=== PATIENT | female | born 1985 | race Caucasian/White ===

== ENCOUNTER 2016-08-30 13:32 | Emergency (ER) | payer OTHER ==
[2016-08-30 14:47] VITALS: BP 132/83
[2016-08-30] MEDS ORDERED: methylPREDNISolone SOD SUCC* 125 MG 2 ML VIAL IM ONE (15:03)
--- NOTE | 2016-08-30 15:07 | UC ---
Allergic Reaction HPI - HPI Summary HPI Summary: patient started tamiflu 4 days ago, stopped ir when she developed full body hives, she states her chest feels a little tight and she is coughing more, does not know if it is from the reaction or the flu - History of Current Complaint Chief Complaint: Desiree Stated Complaint: HIVES 4 DAYS Time Seen by Provider: 08/30/16 14:50 Hx Obtained From: Patient Hx Last Menstrual Period: 08/24/16 ?: No Onset/Duration: Sudden Onset, Lasting Days Severity Initially: Moderate Severity Currently: Moderate Character: Pruritus, Hives Aggrevating Factor(s): Heat Alleviating Factor(s): Nothing Associated Signs And Symptoms: Positive: Hoarseness - Allergies/Home Medications Allergies/Adverse Reactions: Allergies Allergy/AdvReac Type Severity Reaction Status Date / Time Amoxicillin [From Augmentin] Allergy Intermediate hives/GI Verified 08/30/16 14: 47 Clavulanic Acid Allergy Intermediate hives/GI Verified 08/30/16 14:47 [From Augmentin] PMH/Surg Hx/FS Hx/Imm Hx Previously Healthy: Yes - Surgical History Surgical History: Yes Surgery Procedure, Year, and Place: CHOLECYSTECTOMY--2016 - Family History Known Family History: Positive: Hypertension - Social History Alcohol Use: Rare Substance Use Type: None Smoking Status (MU): Never Smoked Tobacco - Immunization History Most Recent Influenza Vaccination: no Review of Systems Constitutional: Negative Skin: Rash Eyes: Negative ENT: Negative Respiratory: Negative Cardiovascular: Negative Gastrointestinal: Negative Genitourinary: Negative Motor: Negative Neurovascular: Negative Musculoskeletal: Negative Neurological: Negative Psychological: Negative All Other Systems Reviewed And Are Negative: Yes Physical Exam Triage Information Reviewed: Yes Appearance: Well-Nourished, Ill-Appearing, Pain Distress Vital Signs: Initial Vital Signs Temp 98.4 F 08/30/16 14:39 Pulse 87 08/30/16 14:39 Resp 18 08/30/16 14:39 BP 132/83 08/30/16 14:39 Pulse Ox 100 08/30/16 14:39 Vital Signs Reviewed: Yes Eye Exam: Normal Eyes: Positive: Conjunctiva Clear ENT Exam: Normal ENT: Positive: Pharyngeal erythema, TM red Dental Exam: Normal Neck exam: Normal Neck: Positive: Supple, Nontender, No Lymphadenopathy Respiratory Exam: Normal Respiratory: Positive: Chest non-tender, Lungs clear, Normal breath sounds Cardiovascular Exam: Normal Cardiovascular: Positive: RRR, No Murmur, Pulses Normal Abdominal Exam: Normal Abdomen Description: Positive: Nontender, No Organomegaly, Soft Bowel Sounds: Positive: Present Musculoskeletal Exam: Normal Musculoskeletal: Positive: Strength Intact, ROM Intact, No Edema Neurological Exam: Normal Neurological: Positive: Alert, Muscle Tone Normal Psychological Exam: Normal Skin: Positive: Other - hives all over from the neck down. Allergic Reaction Course/Dx - Course Course Of Treatment: hx obtained, exam performed, meds reviewed, solumedrol given, prednisone prescribed as well as cough syrup - Differential Dx/Diagnosis Differential Diagnosis/HQI/PQRI: Bronchospasm, Local Allergic Reaction, Urticaria Provider Diagnoses: alleric reaction to tamiflu. bronchospasm Discharge - Discharge Plan Condition: Stable Disposition: HOME Prescriptions: predniSONE TAB* [Deltasone TAB*] 20 mg PO DAILY #18 tab Patient Education Materials: General Allergic Reaction (ED) Referrals: APRIL Cooper [Primary Care Provider] - Additional Instructions: take the prednisone as prescribed. keep skin cool, cool shower, if you get overheated hives may become stonger. Use the cough medicine as needed. Continue with increased fluid intake and get plenty of rest.
== END 2016-08-30 15:39 | disposition home or self-care (01) ==
LOC: UCCORT 13:32
DX: L50.0 Allergic urticaria (principal); T37.5X5A Adverse effect of antiviral drugs, initial encounter; Y92.9 Unspecified place or not applicable; J98.01 Acute bronchospasm; Z88.1 Allergy status to other antibiotic agents; Z90.49 Acquired absence of other specified parts of digestive tract
CPT/HCPCS: 96372; 99212; G0463; J2930

== ENCOUNTER 2017-05-10 11:31 | Emergency (ER) | payer OTHER ==
[2017-05-10 13:04] VITALS: BP 139/90
--- NOTE | 2017-05-10 13:53 | UC ---
Lower Extremity/Ankle HPI - HPI Summary HPI Summary: Awoke with foot pain (L) about 9 days ago continues to hurt with weight bearing no swelling-elevation and rest make it better, no known injury - History of Current Complaint Chief Complaint: UCLowerExtremity Stated Complaint: HAD XRAY LT FOOT Time Seen by Provider: 05/10/17 12:53 Hx Obtained From: Patient Hx Last Menstrual Period: 04/29/17 ?: No Onset/Duration: Sudden Onset, Lasting Days - 9, Still Present Severity Initially: Moderate Severity Currently: Moderate Pain Intensity: 6 Pain Scale Used: 0-10 Numeric Aggravating Factor(s): Standing, Ambulation Alleviating Factor(s): Rest, Elevation Able to Bear Weight: Yes - Allergies/Home Medications Allergies/Adverse Reactions: Allergies Allergy/AdvReac Type Severity Reaction Status Date / Time Amoxicillin [From Augmentin] Allergy Intermediate hives/GI Verified 08/30/16 14: 47 Clavulanic Acid Allergy Intermediate hives/GI Verified 08/30/16 14:47 [From Augmentin] seasonal Allergy Eyes Uncoded 05/10/17 13:04 Itchy/Swollen/Red/Watery Home Medications: Home Medications Ibuprofen TAB* [Motrin TAB* 400 MG] 400 mg PO ONCE PRN 05/10/17 [History Confirmed 05/10/17] PMH/Surg Hx/FS Hx/Imm Hx Previously Healthy: Yes - Surgical History Surgical History: Yes Surgery Procedure, Year, and Place: CHOLECYSTECTOMY--2016 - Family History Known Family History: Positive: Hypertension - Social History Occupation: Employed Full-time Lives: With Family Alcohol Use: Rare Substance Use Type: None Smoking Status (MU): Never Smoked Tobacco - Immunization History Most Recent Influenza Vaccination: no Review of Systems Constitutional: Negative Skin: Negative Eyes: Negative ENT: Negative Respiratory: Negative Cardiovascular: Negative Gastrointestinal: Negative Genitourinary: Negative Motor: Negative Neurovascular: Negative Musculoskeletal: Arthralgia - left foot Neurological: Negative Psychological: Negative Is Patient Immunocompromised?: No All Other Systems Reviewed And Are Negative: Yes Physical Exam Triage Information Reviewed: Yes Appearance: Well-Appearing, No Pain Distress, Well-Nourished Vital Signs: Initial Vital Signs Temp 99.6 F 05/10/17 12:51 Pulse 93 05/10/17 12:51 Resp 20 05/10/17 12:51 BP 139/90 05/10/17 12:51 Vital Signs Reviewed: Yes Eye Exam: Normal Eyes: Positive: Conjunctiva Clear ENT Exam: Normal ENT: Positive: Normal ENT inspection, Hearing grossly normal. Negative: Nasal congestion, Trismus, Muffled voice, Hoarse voice Dental Exam: Normal Neck exam: Normal Neck: Positive: Supple, Nontender, No Lymphadenopathy Respiratory Exam: Normal Respiratory: Positive: Chest non-tender, No respiratory distress, No accessory muscle use Cardiovascular Exam: Normal Cardiovascular: Positive: RRR, Pulses Normal, Brisk Capillary Refill Musculoskeletal Exam: Other Musculoskeletal: Positive: ROM Intact, No Edema, Strength Limited @ - left foot due to pain Neurological Exam: Normal Neurological: Positive: Alert, Muscle Tone Normal Psychological Exam: Normal Skin Exam: Normal Diagnostics - Radiology No standard instances Xray Interpretation: No Acute Changes Radiology Interpretation Completed By: ED Physician, Radiologist Lower Extremity Course/Dx - Course Course Of Treatment: lab studies, cam boot, medrol dose pack follow with ortho - Differential Dx/Diagnosis Provider Diagnoses: Left foot pain Discharge - Discharge Plan Condition: Stable Disposition: HOME Prescriptions: Methylprednisolone [Medrol Dosepak 4 MG*] 4 mg PO .SEE DAVID INSTRUCTION #1 david Patient Education Materials: Arthralgia (ED) Referrals: Rakesh Bee MD [Medical Doctor] - 3 Days
[2017-05-10 19:07] LABS: Hematocrit 37 % (35-47); Hemoglobin 12.7 g/dl (12.0-16.0); Mean Corpuscular HGB Conc 34 g/dl (31-36); Mean Corpuscular Hemoglobin 28 pg (27-31); Mean Corpuscular Volume 81 fL (80-97); Mean Platelet Volume 9 um3 (7.4-10.4); Red Blood Count 4.57 10^6/ul (4.0-5.4); Red Cell Distribution Width 13 % (10.5-15); White Blood Count 10.6 10^3/ul (3.5-10.8)
[2017-05-10 19:23] LABS: C Reactive Protein 20.85 mg/L (< 5.00); Uric Acid 4.4 mg/dL (2.3-6.6)
--- NOTE | 2017-05-11 08:41 | UC ---
Progress - Progress Note Progress Note: 08:40am - the above note was filed under the "Imaging" visit. RN already is aware and has reviewed this note. As such, this has been clarified to the associated visit. Patient Name: RUPERTO FLORES Date of : 85 Patient Status: Referred Attending Provider: aJi Don Date: 05/11/17 07:55 Initialization Date: 05/11/17 07:55 Progress - Progress Note Progress Note: Reviewed CBC, uric acid, [facility] ([facility] CRP in particular elevated. RN to call pt - recommend f/u with orthopedic surgeon as soon as possible - today if possible (recommendation 05/10/17 had been for 3 days.). Suggest hold off methoprednisolone until further evaluation / recommendation by orthopedist. Seek medical attention in the Emergency Department for worse or new problems.
== END 2017-05-10 14:13 | disposition home or self-care (01) ==
LOC: UCCORT 11:31
DX: M25.572 Pain in left ankle and joints of left foot (principal); Z88.3 Allergy status to other anti-infective agents
CPT/HCPCS: 36415; 84550; 85025; 86140; 86618; 99212; G0463

== ENCOUNTER 2017-07-21 16:15 | Emergency (ER) | payer OTHER ==
[2017-07-21 19:12] VITALS: BP 122/71
--- NOTE | 2017-07-21 19:32 | UC ---
Respiratory Complaint HPI - HPI Summary HPI Summary: [address], PAIN WITH SWALLOWING, BODY ACHES, SUBJECTIVE FEVER, MILD COUGH, MILD NASAL CONGESTION. IS REQUESTING FLU AND STREP TESTING. NO FLU SHOT THIS SEASON. - History of Current Complaint Chief Complaint: UCGeneralIllness Stated Complaint: SORE THROAT Time Seen by Provider: 07/21/17 19:15 Hx Obtained From: Patient Hx Last Menstrual Period: 07/05/17 Onset/Duration: Gradual Onset, Lasting Days, Still Present Timing: Constant Severity Initially: Moderate Severity Currently: Moderate Pain Intensity: 5 Pain Scale Used: 0-10 Numeric Character: Cough: Nonproductive Aggravating Factors: Nothing Alleviating Factors: Nothing Associated Signs And Symptoms: Positive: Fever, URI, Nasal Congestion. Negative : Dyspnea - Allergies/Home Medications Allergies/Adverse Reactions: Allergies Allergy/AdvReac Type Severity Reaction Status Date / Time amoxicillin [From Augmentin] Allergy Intermediate hives/GI Verified 07/21/17 19: 12 clavulanic acid Allergy Intermediate hives/GI Verified 07/21/17 19:12 [From Augmentin] seasonal Allergy Eyes Uncoded 07/21/17 19:12 Itchy/Swollen/Red/Watery PMH/Surg Hx/FS Hx/Imm Hx Previously Healthy: Yes - Surgical History Surgical History: Yes Surgery Procedure, Year, and Place: CHOLECYSTECTOMY--2016 - Family History Known Family History: Positive: Hypertension - Social History Alcohol Use: Rare Substance Use Type: None Smoking Status (MU): Never Smoked Tobacco - Immunization History Most Recent Influenza Vaccination: no Review of Systems Constitutional: Fever, Fatigue ENT: Sore Throat, Nasal Discharge Respiratory: Cough Cardiovascular: Negative Gastrointestinal: Negative Musculoskeletal: Myalgia Neurological: Headache All Other Systems Reviewed And Are Negative: Yes Physical Exam Triage Information Reviewed: Yes Appearance: Well-Appearing, No Pain Distress, Well-Nourished Vital Signs: Initial Vital Signs Temp 99.0 F 07/21/17 19:06 Pulse 98 07/21/17 19:06 Resp 16 07/21/17 19:06 BP 122/71 07/21/17 19:06 Pulse Ox 100 07/21/17 19:06 Vital Signs Reviewed: Yes Eyes: Positive: Conjunctiva Clear ENT: Positive: Hearing grossly normal, Pharynx normal, TMs normal, Tonsillar swelling, Tonsillar exudate. Negative: Hoarse voice Neck: Positive: Supple, Tenderness @ - SPFL CERVICAL LAD, Enlarged Nodes @ - SPFL CERVICAL LAD Respiratory Exam: Normal Cardiovascular Exam: Normal Abdomen Description: Positive: Soft Musculoskeletal: Positive: No Edema Neurological: Positive: Alert Psychological: Positive: Age Appropriate Behavior Skin: Negative: rashes UC Diagnostic Evaluation - Laboratory O2 Sat by Pulse Oximetry: 100 Diagnostic Studies Comment: STREP POS. FLU NEG Respiratory Course/Dx - Differential Dx/Diagnosis Provider Diagnoses: STREP PHARYNGITIS Discharge - Discharge Plan Condition: Stable Disposition: HOME Prescriptions: Cephalexin CAP* [Keflex 500 CAP*] 500 mg PO BID #20 cap Patient Education Materials: Strep Throat (ED) Referrals: Keila ESCAMILLA,Jai Orozco [Primary Care Provider] - If Needed Additional Instructions: STREP TEST POSITIVE. FLU NEG. OTC CHLORASEPTIC OR CEPACOL LOZENGES AND/OR IBUPROFEN FOR SORE THROAT NEEDED ONCE SYMPTOMS RESOLVED - NEW TOOTHBRUSH DO NOT SHARE FOOD, DRINK, UTENSILS
== END 2017-07-21 19:48 | disposition home or self-care (01) ==
LOC: UCCORT 16:15
DX: J02.0 Streptococcal pharyngitis (principal)
CPT/HCPCS: 87502; 87651; 99212; G0463

== ENCOUNTER 2018-08-20 15:36 | Emergency (ER) | payer OTHER ==
[2018-08-20 17:28] VITALS: BP 136/82
[2018-08-20] MEDS ORDERED: Dexamethasone TAB* 4 MG PO ONE (18:10)
--- NOTE | 2018-08-20 18:13 | UC ---
Throat Pain/Nasal Siva HPI - HPI Summary HPI Summary: 33 year old female here with complaint of URI symptoms with congestion and throat pain. Reports URI symptoms started about one week ago. She has now throat pain with continuous rhinorrhea and mucus. Reports one episode of NBNB vomiting yesterday but no diarrhea or fever. - History of Current Complaint Chief Complaint: UCGeneralIllness Stated Complaint: SINUS COMPLAINT Time Seen by Provider: 08/20/18 17:58 Hx Last Menstrual Period: 08/10/18 ?: No Onset/Duration: Sudden Onset Severity: Mild Pain Intensity: 4 Cough: Productive Associated Signs & Symptoms: Positive: Sinus Discomfort, Nasal Discharge, Fever , Vomiting - Allergies/Home Medications Allergies/Adverse Reactions: Allergies Allergy/AdvReac Type Severity Reaction Status Date / Time amoxicillin [From Augmentin] Allergy Intermediate hives/GI Verified 07/21/17 19: 12 clavulanic acid Allergy Intermediate hives/GI Verified 07/21/17 19:12 [From Augmentin] seasonal Allergy Eyes Uncoded 07/21/17 19:12 Itchy/Swollen/Red/Watery Home Medications: Home Medications Acetaminophen [APAP] 650 mg PO ONCE 08/20/18 [History Confirmed 08/20/18] Control Patch 08/20/18 [History] PMH/Surg Hx/FS Hx/Imm Hx Previously Healthy: Yes - Surgical History Surgical History: Yes Surgery Procedure, Year, and Place: CHOLECYSTECTOMY--2016 - Family History Known Family History: Positive: Hypertension - Social History Alcohol Use: Rare Substance Use Type: None Smoking Status (MU): Never Smoked Tobacco - Immunization History Most Recent Influenza Vaccination: no Review of Systems All Other Systems Reviewed And Are Negative: Yes Constitutional: Positive: Negative Skin: Positive: Negative ENT: Positive: Sore Throat, Nasal Discharge Respiratory: Positive: Cough Cardiovascular: Positive: Negative Gastrointestinal: Positive: Negative Genitourinary: Positive: Negative Motor: Positive: Negative Neurovascular: Positive: Negative Is Patient Immunocompromised?: No Physical Exam Triage Information Reviewed: Yes Appearance: Well-Appearing Vital Signs: Initial Vital Signs Temp 36.4 C 08/20/18 17:25 Pulse 110 08/20/18 17:25 Resp 16 08/20/18 17:25 BP 136/82 08/20/18 17:25 Pulse Ox 100 08/20/18 17:25 Vital Signs Reviewed: Yes ENT: Positive: Nasal congestion, Nasal drainage, Tonsillar exudate, Sinus tenderness, Uvula midline. Negative: Trismus, Muffled voice, Hoarse voice, Dental tenderness Neck exam: Normal Respiratory Exam: Normal Cardiovascular: Positive: No Murmur, Tachycardia Abdominal Exam: Normal Musculoskeletal Exam: Normal Neurological Exam: Normal Psychological Exam: Normal Skin Exam: Normal Throat Pain/Nasal Course/Dx - Course Course Of Treatment: sinusitis and pharyngitis. - Differential Dx/Diagnosis Differential Diagnosis/HQI/PQRI: Sinusitis, URI Provider Diagnosis: Sinusitis Discharge - Sign-Out/Discharge Documenting (check all that apply): Patient Departure All imaging exams completed and their final reports reviewed: Yes - Discharge Plan Condition: Good Disposition: HOME Prescriptions: Azithromyxin SUNNY (NF) [Z-Sunny (Zithromax) 250 mg tabs #6] 2 tab PO .TODAY, THEN 1 DAILY #6 tab Patient Education Materials: Sinusitis (ED), Strep Throat (ED) Referrals: Keila ESCAMILLA,Jai Orozco [Primary Care Provider] - - Billing Disposition and Condition Condition: GOOD Disposition: Home
== END 2018-08-20 18:41 | disposition home or self-care (01) ==
LOC: UCCORT 15:36
DX: J32.9 Chronic sinusitis, unspecified (principal); Z88.0 Allergy status to penicillin; Z91.09 Other allergy status, other than to drugs and biological substances
CPT/HCPCS: 87651; 99212; G0463; J8540